=== PATIENT | male | born 1980 | race Caucasian/White ===

== ENCOUNTER 2018-05-26 21:21 | Emergency (ER) | payer OTHER ==
[~2018-05-26] VITALS: Ht 182.9 cm; Wt 106.6 kg
[2018-05-26 21:21] VITALS: BP 133/83
[~2018-05-26 21:21] MED LIST: FLC1T PO; GBPN600T PO; GEMF600T3 PO; MELO-195 PO; MORP15TA PO; OXYC-272 PO; PNT40TEC PO; TERB250T10 PO; TIZA4CAP6 PO; [UNRECOGNIZED DRUG - CODE] PO
--- OUTSIDE RECORDS SUMMARY | 2018-05-26 21:25 | XMS REPORT ---
Author Author DARIUS BHAT Organization [facility] Address [address] [place] [address] Care Team Providers Care Merchandise Flow Team Member Name Role Phone DARIUS BHAT Unavailable PROBLEMS Type Condition ICD9-CM Code OUU88-DT Code Onset Dates Condition Status SNOMED Code Problem Gender identity disorder, unspecified F64.9 Active 74068145 Problem Major depression, recurrent, chronic F33.9 Active [id number] ALLERGIES Substance Reaction Event Type Date Status carafate Unknown Non Drug Allergy January, Active bupropion Unknown Non Drug Allergy January, Active omeprazole Unknown Non Drug Allergy January, Active wellbutrin 100mg tab Unknown Non Drug Allergy January, Active prilosec Unknown Non Drug Allergy January, Active ENCOUNTERS Encounter Location Date Diagnosis [facility] [address] [facility] [id number] [address] January, Gender identity disorder, unspecified F64.9 and Major depression, recurrent, chronic F33.9 IMMUNIZATIONS No Known Immunizations SOCIAL HISTORY Never Assessed REASON FOR VISIT f/u PLAN OF CARE Activity Details Follow Up Referral for 6 possible clinician specialists. Reason: VITAL SIGNS MEDICATIONS Medication Instructions Dosage Frequency Start Date End Date Duration Status MetFORMIN HCl ER 500 MG Orally Once a day 1 tablet with evening meal 24h Active BuPROPion HCl ER (XL) 300 MG Orally Once a day 1 tablet in the morning 24h Active Nicotine Polacrilex Active Acetaminophen Extra Strength 500 MG Orally every 6 hrs 1 tablet as needed 6h Active Terbinafine HCl 250 MG Orally Once a day 1 tablet 24h Active PredniSONE 5 MG Orally Once a day 1 tablet 24h Active Cholecalciferol 1000 UNIT Orally Once a day 1 capsule 24h Active Morphine Sulfate Active Methocarbamol 750 MG Orally every 4 hrs 1 tablet 4h Active Meloxicam 15 MG Orally Once a day 1 tablet 24h Active Fish Oil 1000 MG Orally Once a day 1 capsule 24h Active Pregabalin 150 MG Orally Once a day 1 capsule 1 to 3 hours before bedtime in the evening 24h Active Vilazodone HCl Active Pantoprazole Sodium Active BuPROPion HCl ER (Smoking Det) 150 MG Orally Once a day 1 tablet in the morning 24h Active RESULTS No Results PROCEDURES Procedure Date Ordered Result Body Site Psych diagnostic evaluation, new patient January 16, 2018 INSTRUCTIONS MEDICATIONS ADMINISTERED No Known Medications MEDICAL (GENERAL) HISTORY Type Description Date Medical History impaired fasting glucose Medical History Vitamin D deficiency, unspecified Medical History Nicotine dependence, cigarettes, uncomplicated Medical History Unsp injury to unsp level of lumbar spinal cord, s Medical History Gastro-esophageal reflux disease without esophagit Medical History Mixed hyperlipidemia Medical History Major depressive disorder, recurrent, unspecified Medical History otalgia nos Medical History other dyschromia Medical History obesity, unsp Medical History redun prepuce phimosis Medical History spasm of muscle Medical History unsp acquired absence teeth Medical History B-complex defic nec Medical History bilat inguinal hernia Medical History cervicalgia Medical History alcoh dep nec/nos-unspec Medical History alcohol abuse-unspec Medical History anxiety state nos Medical History psychological stress nec Medical History orchitis/epididymit nos Medical History hypertrophy of breast Medical History depressive disorder nec Medical History depress disorder sev w/o psych Medical History esophageal reflux Medical History organ surg nec Medical History retntion/urine, unsp Medical History premature ejaculation Medical History sprain of wrist nos Medical History lumbosacral neuritis nos Medical History refusal of treatment Medical History contusion of elbow Medical History lump or mass in breast Medical History bumbago Medical History hair diseasese nec Medical History visual discomfort Medical History unspecified constipation Medical History tobacco use disorder Medical History recurr depr disorder-unsp Medical History alcohol abuse-episodic Medical History bronchitis nos Medical History hypertention nos Medical History general osteoarthrosis Medical History acute sinusitis nos Surgical History back surgery Surgical History hernia repair Hospitalization History 2x psychiatric hospitalization
--- OUTSIDE RECORDS SUMMARY | 2018-05-26 21:25 | XMS REPORT | Continuity of Care Document ---
Author Author [facility] Organization [facility] [employer] Address Unknown Phone Unavailable Allergies Active Description Code Type Severity Reaction Onset Reported/Identified Relationship to Patient Clinical Status Yes bupropion [id number] Drug Allergy Mild N/A 01/31/2014 Medications There is no data. Problems Date Dx Coded Attending Type Code Diagnosis Diagnosed By 06/28/2015 G47.30 Sleep apnea, unspecified DIA CLARKE MD 10/13/2015 PAYAM ROCA APRN Ot V15.59 10/13/2015 PAYAM ROCA APRN Ot V70.0 10/13/2015 VEKNAT AVITIA DO Ot 724.2 10/13/2015 VENKAT AVITIA DO Ot V45.4 05/11/2016 PAYAM ROCA APRN Ot V15.59 PERSONAL HISTORY OF OTHER INJURY 05/11/2016 PAYAM ROCA APRN Ot V70.0 ROUTINE MEDICAL EXAM 05/11/2016 VENKAT AVITIA DO Ot 724.2 LUMBAGO 05/11/2016 VENKAT AVITIA DO Ot V45.4 ARTHRODESIS STATUS 05/12/2016 RO ECKERT MD Ot F32.9 MAJOR DEPRESSIVE DISORDER, SINGLE EPISOD 05/12/2016 RO ECKERT MD Ot F41.9 ANXIETY DISORDER, UNSPECIFIED 05/12/2016 RO ECKERT MD Ot Z87.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 06/30/2016 PAYAM ROCA APRN Ot V15.59 PERSONAL HISTORY OF OTHER INJURY 06/30/2016 PAYAM ROCA APRN Ot V70.0 ROUTINE MEDICAL EXAM 06/30/2016 VENKAT AVITIA DO Ot 724.2 LUMBAGO 06/30/2016 VENKAT AVITIA DO Ot V45.4 ARTHRODESIS STATUS 06/30/2016 TOMEKA PRAKASH, RO Torres Ot F32.9 MAJOR DEPRESSIVE DISORDER, SINGLE EPISOD 06/30/2016 TOMEKA PRAKASH, RO Torres Ot F41.9 ANXIETY DISORDER, UNSPECIFIED 06/30/2016 TOMEKA PRAKASH, RO Torres Ot Z87.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 07/08/2016 RHONDA PRAKASH, LILIAM Dodd Ot M54.5 LOW BACK PAIN 07/08/2016 TOMEKA PRAKASH, RO Torres Ot F32.9 MAJOR DEPRESSIVE DISORDER, SINGLE EPISOD 07/08/2016 TOMEKA PRAKASH, RO Torres Ot F41.9 ANXIETY DISORDER, UNSPECIFIED 07/08/2016 TOMEKA PRAKASH, RO Torres Ot Z87.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 07/14/2016 RHONDA PRAKASH, LILIAM Dodd Ot M54.5 LOW BACK PAIN 07/16/2016 LILIAM ELLIS MD Ot M54.5 LOW BACK PAIN 12/08/2016 M54.5 LOW BACK PAIN Jonas Mckeon 12/08/2016 Z98.1 ARTHRODESIS STATUS Jonas Mckeon Procedures Code [place] [address] Polysomnography; age 6 years or older, sleep staging with 4 or more additional parameters of sleep, VINCE PRAKASH, DIA 02/10/2016 49856 NEW PATIENT DETAILED Jonas Mckeon 01/23/2017 Results There is no data. Encounters ACCT No. Visit Date/Time Discharge Status Pt. Type Provider Facility Loc./Unit Complaint [id number] 06/12/2015 16:30:00 06/12/2015 23:59:59 CLS Outpatient [id number] 01/16/2018 13:30:00 01/16/2018 23:59:59 CLS Outpatient [facility] [id number] 04/20/2018 12:20:13 04/20/2018 23:59:59 CLS Outpatient [id number] 06/30/2016 14:16:00 06/30/2016 23:59:59 CLS Outpatient LILIAM ELLIS MD [facility] LOW BACK PAIN [id number] 05/11/2016 15:07:00 05/11/2016 23:59:59 CLS Outpatient TOMEKA PRAKASH, RO Torres [facility] HX OF DEPRESSION/ANXIETY WITH TBI [id number] 05/19/2015 09:17:00 05/19/2015 23:59:59 CLS Outpatient VENKAT AVITIA DO [facility] SPONDYLOSIS [id number] 06/05/2014 09:09:00 06/05/2014 23:59:59 CLS Outpatient PAYAM ROCA APRN [facility] SPINAL CORD INJURY [id number] 01/31/2014 19:29:00 01/31/2014 22:42:00 DIS Emergency [id number] 05/26/2018 21:22:00 ACT Emergency JORGE PRAKASH, SHARAD Platt [facility] ER PAIN ALL OVER
[2018-05-26] MEDS ORDERED: THIAMINE 100 MG/ML 2 ML (VITAMIN B-1) VIAL ONE (21:30)
[2018-05-26] MEDS ORDERED: NS IV 1000 ML 1,000 ML ONE (21:30)
[2018-05-26] MEDS ORDERED: MAGNESIUM SULFATE 1 GM/2 ML VIAL ONE (21:30)
[2018-05-26] MEDS ORDERED: FOLIC ACID 1 MG/0.2 ML SYR (ED) ONE (21:30)
[2018-05-26] MEDS ORDERED: NS IV 1000 ML 1,000 ML IV SCH (21:43)
[2018-05-26] MEDS ORDERED: THIAMINE INJECTION 100 MG, FOLIC ACID INJECTION 1 MG, VITAMIN MULTI INJECTION 10 ML, MA... IV STA ×5 (21:45)
[2018-05-26 21:51] LABS: BASOPHILS % (AUTO) 0 % (0-10); EOSINOPHILS # (AUTO) 0.1 10^3/uL (0.0-0.3); EOSINOPHILS % (AUTO) 1 % (0-10); HEMATOCRIT 44 % (40-54); HEMOGLOBIN 15.8 G/DL (13.3-17.7); LYMPHOCYTES # (AUTO) 3.2 X 10^3 (1.0-4.0); LYMPHOCYTES % (AUTO) 30 % (12-44); MEAN CORPUSCULAR HEMOGLOBIN 31 PG (25-34); MEAN CORPUSCULAR HGB CONC 36 G/DL (32-36); MEAN CORPUSCULAR VOLUME 87 FL (80-99); MEAN PLATELET VOLUME 9.4 FL (7.4-10.4); MONOCYTES # (AUTO) 0.6 X 10^3 (0.0-1.0); MONOCYTES % (AUTO) 6 % (0-12); NEUTROPHILS # (AUTO) 6.7 X 10^3 (1.8-7.8); NEUTROPHILS % (AUTO) 63 % (42-75); PLATELET COUNT 364 10^3/uL (130-400); RED BLOOD COUNT 5.04 10^6/uL (4.35-5.85); RED CELL DISTRIBUTION WIDTH 12.3 % (10.0-14.5); WHITE BLOOD COUNT 10.7 10^3/uL (4.3-11.0)
--- NOTE | 2018-05-26 21:51 | ED Psychosocial ---
General Chief Complaint: General Problems/Pain Stated Complaint: PAIN ALL OVER Source: patient, EMS Exam Limitations: intoxication History of Present Illness Date Seen by Provider: May 26, 2018 Time Seen by Provider: 21:27 Initial Comments Patient presents to the ER by EMS with chief complaint that he called police greg because he was concerned that he might stop breathing if he fell asleep. He drank somewhere between 6 and 8 shots equivalent of Yeison garza trying to ameliorate the withdrawal effects of being off the morphine for the past 3 days and starting the oxycodone. He is on the morphine for the past 9 years and has tried switching off of the morphine to fentanyl patches and that did not work for him so that is the second attempt to switch to a lower dose oxycodone. He was using 30 mg 3 times a day of sustained-release morphine and is now using 15 mg oxycodone sustained-release 3 times a day. He says that he's having 10 out of 10 pain in his bilateral lower extremities. 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 He is followed by the spinal clinic and [facility] in [place], [place] and they have been working on changing his medications. He says he gets all the bad effects but not of the benefit from the other opiate choices. He knows he has hyper analgesia secondary to his long use of morphine. Tonight he was not trying to kill himself he says he does have from time to time suicidal ideation but he did not have that tonight he just merely wanted to help with the withdrawal effects from the morphine so that he could be successful on the oxycodone. After he drank the alcohol he says he was still in excruciating pain and yet felt intoxicated and then he was afraid that the combination of alcohol and opiates would cause him to stop breathing if he went to sleep. He does wear CPAP mask but he says does not fit him very well so he will did not trust that it would help him breathe when he slept. Before tonight he says been several years since he drank but he used to drink quite a bit of whiskey until 1 day he decided he was going to quit. Allergies and Home Medications Allergies Coded Allergies: bupropion (Verified Allergy, Mild, 01/31/14) "Jittery" Home Medications Dextroamphetamine Sulfate 5 Mg/5 Ml Solution, 5 MG PO BID, (Reported) Folic Acid 1 Mg Tablet, 1 MG PO DAILY, (Reported) Gabapentin 600 Mg Tab, 1,200 MG PO TID, (Reported) Gemfibrozil 600 Mg Tablet, 1 EACH PO BID, (Reported) Meloxicam 15 Mg Tablet, 15 MG PO DAILY, (Reported) Morphine Sulfate 15 Mg Tablet, 30 MG PO TID, (Reported) Oxycodone Hcl/Acetaminophen 1 Tab Tablet, 1 TAB PO Q4H PRN for PAIN Prescribed by: ROCK FIELDS on 01/31/142233 Pantoprazole Sodium 40 Mg Tablet.dr, 1 TAB PO DAILY, (Reported) Terbinafine Hcl 250 Mg Tablet, 250 MG PO DAILY, (Reported) Tizanidine Hcl 4 Mg Capsule, 4 MG PO HS, (Reported) Patient Home Medication List Home Medication List Reviewed: Yes Review of Systems Constitutional: No chills, No diaphoresis, No fever, No malaise EENTM: No ear pain, No eye pain Respiratory: No cough, No phlegm, No short of breath Cardiovascular: No chest pain, No palpitations Gastrointestinal: No abdominal pain, No nausea, No vomiting Genitourinary: No discharge, No dysuria Musculoskeletal: No joint pain, No joint swelling Skin: No dryness, No pruritus, No rash Past Njpgmbh-Ylvxmr-Vnbzng Hx Patient Social History Alcohol Use: Past History Alcohol Beverage of Choice: Whiskey Recreational Drug Use: No Smoking Status: Current Everyday Smoker Type Used: Cigarettes Past Medical History Gastroesophageal Reflux Degenerate Disk Disease, Back Injury, Chronic Back Pain ADD/ADHD, PTSD Physical Exam Capillary Refill : Height, Weight, BMI Height: 6'0" Weight: 260lbs. oz. 117.352767jc; BMI Method:Stated General Appearance: WD/WN, mild distress (Tearful) HEENT: PERRL/EOMI, pharynx normal Neck: non-tender, full range of motion, normal inspection Respiratory: no respiratory distress, no accessory muscle use Cardiovascular: normal peripheral pulses, regular rate, rhythm, no edema Gastrointestinal: soft, tenderness (Diffuse all 4 quadrants) Extremities: normal range of motion, normal capillary refill, other (Tender to palpation everywhere.) Neurologic/Psychiatric: alert, oriented x 3, other (Depressed affect, tearful) Appearance/Memory: appropriate appearance, no memory impairment; No denies illness Behavior/Eye Contact: cooperative, good eye contact Thoughts/Hallucinations: normal thought pattern, no apparent hallucination, other (Deny suicidal or homicidal ideation) Skin: normal color, warm/dry Progress/Results/Core Measures Results/Orders Lab Results Laboratory Tests Test 05/26/18 21:30 Range/Units White Blood Count 10.7 4.3-11.0 10^3/uL Red Blood Count 5.04 4.35-5.85 10^6/uL Hemoglobin 15.8 13.3-17.7 G/DL Hematocrit 44 40-54 % Mean Corpuscular Volume 87 80-99 FL Mean Corpuscular Hemoglobin 31 25-34 PG Mean Corpuscular Hemoglobin Concent 36 32-36 G/DL Red Cell Distribution Width 12.3 10.0-14.5 % Platelet Count 364 130-400 10^3/uL Mean Platelet Volume 9.4 7.4-10.4 FL Neutrophils (%) (Auto) 63 42-75 % Lymphocytes (%) (Auto) 30 12-44 % Monocytes (%) (Auto) 6 0-12 % Eosinophils (%) (Auto) 1 0-10 % Basophils (%) (Auto) 0 0-10 % Neutrophils # (Auto) 6.7 1.8-7.8 X 10^3 Lymphocytes # (Auto) 3.2 1.0-4.0 X 10^3 Monocytes # (Auto) 0.6 0.0-1.0 X 10^3 Eosinophils # (Auto) 0.1 0.0-0.3 10^3/uL Basophils # (Auto) 0.0 0.0-0.1 10^3/uL Sodium Level 143 135-145 MMOL/L Potassium Level 3.6 3.6-5.0 MMOL/L Chloride Level 110 H 98-107 MMOL/L Carbon Dioxide Level 20 L 21-32 MMOL/L Anion Gap 13 5-14 MMOL/L Blood Urea Nitrogen 13 7-18 MG/DL Creatinine 0.82 0.60-1.30 MG/DL Estimat Glomerular Filtration Rate > 60 BUN/Creatinine Ratio 16 Glucose Level 111 H 70-105 MG/DL Calcium Level 9.3 8.5-10.1 MG/DL Corrected Calcium 8.5-10.1 MG/DL Total Bilirubin 0.5 0.1-1.0 MG/DL Aspartate Amino Transf (AST/SGOT) 13 5-34 U/L Alanine Aminotransferase (ALT/SGPT) 17 0-55 U/L Alkaline Phosphatase 73 40-136 U/L Total Protein 7.6 6.4-8.2 GM/DL Albumin 4.8 H 3.2-4.5 GM/DL Lipase 58 8-78 U/L Salicylates Level < 5.0 L 5.0-20.0 MG/DL Acetaminophen Level < 10 L 10-30 UG/ML Serum Alcohol 170 H <10 MG/DL My Orders Orders - SHARAD PATEL Giulia Ns Iv 1000 Ml (Sodium Chloride 0.9%) (05/26/18 21:30) Magnesium Sulfate Inj (Magnesium Sulfate (05/26/18 21:30) Folic Acid Syr (Ed) (Folic Acid Syr (Ed) (05/26/18 21:30) Thiamine Injection (Vitamin B-1 Injectio (05/26/18 21:30) Ua Culture If Indicated (05/26/18 21:43) Cbc With Automated Diff (05/26/18 21:43) Comprehensive Metabolic Panel (05/26/18 21:43) Alcohol (05/26/18 21:43) Drug Screen Stat (Urine) (05/26/18 21:43) Acetaminophen (05/26/18 21:43) Salicylate (05/26/18 21:43) Ekg Tracing (05/26/18 21:43) Saline Lock/Iv-Start (05/26/18 21:43) Monitor-Rhythm Ecg Trace Only (05/26/18 21:43) Bh Status Checks/Observation Q15M (05/26/18 21:43) Saline Lock/Iv-Start (05/26/18 21:43) Ns Iv 1000 Ml (Sodium Chloride 0.9%) (05/26/18 21:43) Lipase (05/26/18 21:43) End Tidal Co2 (05/26/18 21:43) Thiamine Injection (Vitamin B-1 Injectio (05/26/18 21:45) Nicotine Patch (Nicoderm Patch) (05/26/18 22:15) Ketorolac Injection (Toradol Injection) (05/26/18 22:45) Acetaminophen Tablet (Tylenol Tablet) (05/26/18 23:00) Medications Given in ED Current Medications Medications Dose Ordered Sig/Madelin Route Start Time Stop Time Status Last Admin Dose Admin Folic Acid 1 mg STK-MED ONCE .ROUTE 05/26/18 21:30 05/26/18 21:35 DC 05/26/18 21:36 1 MG Magnesium Sulfate 1 gm STK-MED ONCE .ROUTE 05/26/18 21:30 05/26/18 21:35 DC 05/26/18 21:36 2 GM Sodium Chloride 1,000 ml @ ud STK-MED ONCE .ROUTE 05/26/18 21:30 05/26/18 21:34 DC 05/26/18 21:36 1,000 MLS/HR Thiamine HCl 200 mg STK-MED ONCE .ROUTE 05/26/18 21:30 05/26/18 21:35 DC 05/26/18 21:36 200 MG Progress Progress Note #1: Time: 21:51 Progress Note We'll get some labs to find out what his alcohol level is urinalysis and urine drug screen. We'll give him a banana bag and a liter fluids to help take him up and dilute his substances and help him remove them through urine. Would like to help with his withdrawal side effects with some kind of benzodiazepine but I would prefer to see what his alcohol level is first and we will put an end tidal CO2 monitor on him as well. EKG. Progress Note #2: Time: 22:44 Progress Note The plan is to get some labs back before offered him anything for his discomfort. Like no his alcohol level is in his urine drug screen. While patient was in the bathroom riding a urine specimen the nurse thinks he was smoking a cigarette. He asked if you are outside for a smoke and she informed him of our policy that if he left he would be signed out. We did offer him a nicotine patch and 1 was ordered. They should says he did not really want a nicotine patch but he would take it. Patient was informed that if he left he would be signed out as AMA as he was still asking to go out and smoke a cigarette. Patient then walked out the back door of the ambulance bay. Alcohol level is 170. Benzos might further produce sedation. We plan to give him some Toradol for analgesia as this should not produce any sedation. We can also use Tylenol and then reassess. The patient removed his own IV access and left a laying on the bed. He declined to return when asked. At this time he is decisional, alert oriented times person place and situation and we have given him options and he has exercise the option to discontinue seeking treatment in the ER tonight. We have encouraged him to follow up with his primary care doctor. He has repeatedly stated that he is not suicidal and was not trying to kill himself but was just trying to take care of his symptoms. Initial ECG Impression Date: May 26, 2018 Initial ECG Impression Time: 22:08 Initial ECG Rate: 88 Initial ECG Rhythm: Normal Sinus Initial ECG Intervals: Normal Initial ECG Impression: Normal Initial ECG Comparisson: No Previous ECG Available Comment No ST elevation or depression Departure Impression Primary Impression: Alcohol intoxication Qualified Codes: F10.920 - Alcohol use, unspecified with intoxication, uncomplicated Additional Impressions: Opiate dependence, continuous Opioid-induced hyperalgesia Disposition: 07 AGAINST MEDICAL ADVICE Condition: Against Medical Advice Departure-Patient Inst. Decision time for Depature: 23:01 Referrals: NO,LOCAL PHYSICIAN (PCP) Primary Care Physician Patient Instructions: ALCOHOL AND SUBSTANCE ABUSE, Alcohol Level Add. Discharge Instructions: Follow-up with your primary care doctor. If you have other worrisome symptoms return to the ER for further evaluation. All discharge instructions reviewed with patient and/or family. Voiced understanding. SHARAD PATEL May 26, 2018 21:51
[2018-05-26 22:05] LABS: ALANINE AMINOTRANSFERASE 17 U/L (0-55); ALBUMIN 4.8 GM/DL (3.2-4.5); ALKALINE PHOSPHATASE 73 U/L (40-136); BILIRUBIN,TOTAL 0.5 MG/DL (0.1-1.0); BUN/CREATININE RATIO 16; CALCIUM 9.3 MG/DL (8.5-10.1); CARBON DIOXIDE 20 MMOL/L (21-32); CREATININE SERUM 0.82 MG/DL (0.60-1.30); GFR ESTIMATED > 60; GLUCOSE 111 MG/DL (70-105); LIPASE 58 U/L (8-78); SALICYLATE < 5.0 MG/DL (5.0-20.0); TOTAL PROTEIN 7.6 GM/DL (6.4-8.2)
[2018-05-26] MEDS ORDERED: NICOTINE 14 MG (NICODERM) PATCH TD ONE (22:15)
[2018-05-26 22:18] LABS: ACETAMINOPHEN < 10 UG/ML (10-30); CHLORIDE 110 MMOL/L (98-107); POTASSIUM 3.6 MMOL/L (3.6-5.0); SODIUM 143 MMOL/L (135-145)
[2018-05-26] MEDS ORDERED: KETOROLAC 30 MG/ML VIAL IVP ONE (22:45)
[2018-05-26] MEDS ORDERED: ACETAMINOPHEN 500 MG TAB (TYLENOL) PO ONE (23:00)
[2018-05-27 02:18] LABS: BILIRUBIN,URINE NEGATIVE (NEGATIVE); CLARITY,URINE CLEAR; COLOR,URINE YELLOW; GLUCOSE, URINE (UA) NEGATIVE (NEGATIVE); KETONES,URINE NEGATIVE (NEGATIVE); LEUKOCYTE ESTERASE ,URINE NEGATIVE (NEGATIVE); NITRITE,URINE NEGATIVE (NEGATIVE); PH,URINE 5 (5-9); PROTEIN,URINE NEGATIVE (NEGATIVE); UROBILINOGEN,URINE NORMAL (NORMAL)
[2018-05-27 02:28] LABS: BACTERIA,URINE FEW /HPF; RBC,URINE RARE /HPF; SQUAMOUS EPITHELIAL CELL,UR 0-2 /HPF
[2018-05-27 02:29] LABS: HYALINE CASTS, URINE 0-2 /LPF
== END 2018-05-26 22:40 | disposition left against medical advice (07) ==
LOC: EDUNIT# 21:21 → ER 21:22
DX: F10.129 Alcohol abuse with intoxication, unspecified (principal); F11.288 Opioid dependence with other opioid-induced disorder; R20.8 Other disturbances of skin sensation; K21.9 Gastro-esophageal reflux disease without esophagitis; F90.9 Attention-deficit hyperactivity disorder, unspecified type; F43.10 Post-traumatic stress disorder, unspecified; F17.210 Nicotine dependence, cigarettes, uncomplicated; Z88.8 Allergy status to other drugs, medicaments and biological substances; Z98.890 Other specified postprocedural states
CPT/HCPCS: 36415; 80053; 80320; 80329; 81000; 83690; 85025; 93005; 93041; 96374; 96375

== ENCOUNTER 2018-05-27 01:37 | Emergency (ER) | payer OTHER ==
[~2018-05-27] VITALS: Ht 182.9 cm; Wt 129.3 kg
--- OUTSIDE RECORDS SUMMARY | 2018-05-27 01:41 | XMS REPORT | Continuity of Care Document ---
Author Author [facility] Organization [facility] [place] Address Unknown Phone Unavailable Allergies Active Description Code Type Severity Reaction Onset Reported/Identified Relationship to Patient Clinical Status Yes bupropion [id number] Drug Allergy Mild N/A 01/31/2014 Medications There is no data. Problems Date Dx Coded Attending Type Code Diagnosis Diagnosed By 06/28/2015 G47.30 Sleep apnea, unspecified DIA CLARKE MD 10/13/2015 PAYAM ROCA APRN Ot V15.59 10/13/2015 PAYAM ROCA APRN Ot V70.0 10/13/2015 VENKAT AVITIA DO Ot 724.2 10/13/2015 VENKAT AVITIA [...] Ot 724.2 LUMBAGO 06/30/2016 VENKAT AVITIA DO J Ot V45.4 ARTHRODESIS STATUS 06/30/2016 TOMEKA PRAKASH, [...] Dodd Ot M54.5 LOW BACK PAIN 07/16/2016 RHONDA PRAKASH, LILIAM Dodd Ot M54.5 LOW BACK PAIN 12/08/2016 M54.5 LOW BACK PAIN Jonas Mckeon 12/08/2016 Z98.1 ARTHRODESIS STATUS Jonas Mckeon 05/26/2018 RHONDA PRAKASH, LILIAM Dodd Ot M54.5 LOW BACK PAIN Procedures Code Description [place] [address] Polysomnography; age 6 years or older, sleep staging with 4 or more additional parameters of sleep, VINCE PRAKASH, DIA 02/10/2016 23628 NEW PATIENT DETAILED Jonas Mckeon 01/23/2017 Results Test Result Range Complete blood count (CBC) with automated white blood cell (WBC) differential - 05/26/18 21:30 Blood leukocytes automated count (number/volume) 10.7 10*3/uL 4.3-11.0 Blood erythrocytes automated count (number/volume) 5.04 10*6/uL 4.35-5.85 Venous blood hemoglobin measurement (mass/volume) 15.8 g/dL 13.3-17.7 Blood hematocrit (volume fraction) 44 % 40-54 Automated erythrocyte mean corpuscular volume 87 [foz_us] 80-99 Automated erythrocyte mean corpuscular hemoglobin (mass per erythrocyte) 31 pg 25-34 Automated erythrocyte mean corpuscular hemoglobin concentration measurement ( mass/volume) 36 g/dL 32-36 Automated erythrocyte distribution width ratio 12.3 % 10.0-14.5 Automated blood platelet count (count/volume) 364 10*3/uL 130-400 Automated blood platelet mean volume measurement 9.4 [foz_us] 7.4-10.4 Automated blood neutrophils/100 leukocytes 63 % 42-75 Automated blood lymphocytes/100 leukocytes 30 % 12-44 Blood monocytes/100 leukocytes 6 % 0-12 Automated blood eosinophils/100 leukocytes 1 % 0-10 Automated blood basophils/100 leukocytes 0 % 0-10 Blood neutrophils automated count (number/volume) 6.7 10*3 1.8-7.8 Blood lymphocytes automated count (number/volume) 3.2 10*3 1.0-4.0 Blood monocytes automated count (number/volume) 0.6 10*3 0.0-1.0 Automated eosinophil count 0.1 10*3/uL 0.0-0.3 Automated blood basophil count (count/volume) 0.0 10*3/uL 0.0-0.1 Comprehensive metabolic panel - 05/26/18 21:30 Serum or plasma sodium measurement (moles/volume) 143 mmol/L 135-145 Serum or plasma potassium measurement (moles/volume) 3.6 mmol/L 3.6-5.0 Serum or plasma chloride measurement (moles/volume) 110 mmol/L 98-107 Carbon dioxide 20 mmol/L 21-32 Serum or plasma anion gap determination (moles/volume) 13 mmol/L 5-14 Serum or plasma urea nitrogen measurement (mass/volume) 13 mg/dL 7-18 Serum or plasma creatinine measurement (mass/volume) 0.82 mg/dL 0.60-1.30 Serum or plasma urea nitrogen/creatinine mass ratio 16 NRG Serum or plasma creatinine measurement with calculation of estimated glomerular filtration rate > NRG Serum or plasma glucose measurement (mass/volume) 111 mg/dL 70-105 Serum or plasma calcium measurement (mass/volume) 9.3 mg/dL 8.5-10.1 Serum or plasma total bilirubin measurement (mass/volume) 0.5 mg/dL 0.1-1.0 Serum or plasma alkaline phosphatase measurement (enzymatic activity/volume) 73 U/L 40-136 Serum or plasma aspartate aminotransferase measurement (enzymatic activity/ volume) 13 U/L 5-34 Serum or plasma alanine aminotransferase measurement (enzymatic activity/volume ) 17 U/L 0-55 Serum or plasma protein measurement (mass/volume) 7.6 g/dL 6.4-8.2 Serum or plasma albumin measurement (mass/volume) 4.8 g/dL 3.2-4.5 Lipase - 05/26/18 21:30 Lipase 58 U/L 8-78 Serum or plasma salicylates measurement (mass/volume) - 05/26/18 21:30 Serum or plasma salicylates measurement (mass/volume) < mg/dL 5.0-20.0 Serum or plasma acetaminophen measurement (mass/volume) - 05/26/18 21:30 Serum or plasma acetaminophen measurement (mass/volume) < ug/mL 10-30 Serum or plasma ethanol measurement (mass/volume) - 05/26/18 21:30 Serum or plasma ethanol measurement (mass/volume) 170 mg/dL <10 Encounters ACCT No. Visit Date/Time Discharge Status Pt. Type Provider Facility Loc./Unit Complaint [id number] 06/12/2015 16:30:00 06/12/2015 23:59:59 CLS Outpatient [id number] 01/16/2018 13:30:00 01/16/2018 23:59:59 CLS Outpatient IAN GARSIA [facility] [id number] 04/20/2018 12:20:13 04/20/2018 23:59:59 CLS Outpatient [id number] 05/26/2018 21:22:00 05/26/2018 22:40:00 DIS Emergency JORGE PRAKASH, SHARAD Platt [facility] ER PAIN ALL OVER [id number] 06/30/2016 14:16:00 06/30/2016 23:59:59 CLS Outpatient LILIAM ELLIS MD [facility] RAD LOW BACK PAIN [id number] 05/11/2016 15:07:00 05/11/2016 23:59:59 CLS Outpatient RO ECKERT MD [facility] RAD HX OF DEPRESSION/ANXIETY WITH TBI [id number] 05/19/2015 09:17:00 05/19/2015 23:59:59 CLS Outpatient VENKAT AVITIA DO [facility] RAD SPONDYLOSIS [id number] 06/05/2014 09:09:00 06/05/2014 23:59:59 CLS Outpatient PAYAM ROCA APRN [facility] RAD SPINAL CORD INJURY [id number] 01/31/2014 19:29:00 01/31/2014 22:42:00 DIS Emergency
[2018-05-27] MEDS ORDERED: NALOXONE 0.4 MG/ML 1 ML (NARCAN) VIAL ONE (01:45)
--- NOTE | 2018-05-27 01:50 | ED Psychosocial ---
General Chief Complaint: Substance Abuse Stated Complaint: ETOH Nursing Triage Note: LEFT AMA, WENT HOME AND TOOK MORE MEDICATIONS FOR HIS PAIN HE IS HAVING. CALLED HIS BROTHER AND BROTHER AND PT CALLED EMS TO COME GET HIM AGIAN. Source: patient Exam Limitations: intoxication History of Present Illness Date Seen by Provider: May 27, 2018 Time Seen by Provider: 01:40 Initial Comments Patient presents to ER by EMS. He says he called his brother both called because after he left the hospital earlier before midnight AMA he went home took 3 more 30 mg tablets of morphine sustained release and one more tablet of oxycodone. He says he did not drink anymore alcohol because he I'll call was not helping any ice. He says he just wants to sleep. Doesn't care if he wakes up. He denies suicidal intention. He says it called because his brother is concerned that he might not wake up if he went to sleep after taking that much morphine. Says he is tired of the pain and just wants to sleep. Allergies and Home Medications Allergies Coded Allergies: bupropion (Verified Allergy, Mild, 01/31/14) "Jittery" Home Medications Dextroamphetamine Sulfate 5 Mg/5 Ml Solution, 5 MG PO BID, (Reported) Folic Acid 1 Mg Tablet, 1 MG PO DAILY, (Reported) Gabapentin 600 Mg Tab, 1,200 MG PO TID, (Reported) Gemfibrozil 600 Mg Tablet, 1 EACH PO BID, (Reported) Meloxicam 15 Mg Tablet, 15 MG PO DAILY, (Reported) Morphine Sulfate 15 Mg Tablet, 30 MG PO TID, (Reported) Oxycodone Hcl/Acetaminophen 1 Tab Tablet, 1 TAB PO Q4H PRN for PAIN Prescribed by: ROCK FIELDS on 01/31/142233 Pantoprazole Sodium 40 Mg Tablet.dr, 1 TAB PO DAILY, (Reported) Terbinafine Hcl 250 Mg Tablet, 250 MG PO DAILY, (Reported) Tizanidine Hcl 4 Mg Capsule, 4 MG PO HS, (Reported) Patient Home Medication List Home Medication List Reviewed: Yes Review of Systems Constitutional: No chills, No diaphoresis, No fever, No malaise EENTM: No ear pain, No eye pain Respiratory: No cough, No short of breath Cardiovascular: No chest pain, No edema Gastrointestinal: No abdominal pain, No constipation, No nausea Past Epguukh-Wggdiz-Qjptpa Hx Patient Social History Alcohol Use: Regular Use Alcohol Beverage of Choice: Whiskey Recreational Drug Use: No Smoking Status: Current Everyday Smoker Type Used: Cigarettes Recent Foreign Travel: No Contact w/Someone Who Travel: No Recent Infectious Disease Expo: No Past Medical History Surgeries: Yes (lumbar spine fusion, hernia repair) Respiratory: No Cardiac: No Neurological: No Gastrointestinal: Yes Gastroesophageal Reflux Musculoskeletal: Yes Degenerate Disk Disease, Back Injury, Chronic Back Pain Endocrine: No Cancer: No Psychosocial: Yes ADD/ADHD, PTSD Integumentary: No Blood Disorders: No Physical Exam Vital Signs - First Documented 05/27/18 01:44 Temp 98.6 Pulse 95 Resp 10 B/P (MAP) 163/94 (117) Pulse Ox 94 Capillary Refill : Less Than 3 Seconds Height, Weight, BMI Height: 6'0" Weight: 285lbs. oz. 129.943479ox; BMI Method:Stated General Appearance: WD/WN, no apparent distress HEENT: PERRL/EOMI, pharynx normal Neck: non-tender, normal inspection Respiratory: chest non-tender, lungs clear, normal breath sounds, no respiratory distress, no accessory muscle use Cardiovascular: normal peripheral pulses, regular rate, rhythm Peripheral Pulses: 2+ Radial Pulses (R), 2+ Radial Pulses (L) Gastrointestinal: normal bowel sounds, non tender, soft Neurologic/Psychiatric: alert, oriented x 3, depressed affect Progress/Results/Core Measures Results/Orders My Orders Orders - SHARAD PATEL End Tidal Co2 (05/27/18 01:47) Naloxone Injection (Narcan Injection) (05/27/18 01:45) Naloxone Injection (Narcan Injection) (05/27/18 02:15) Alcohol (05/27/18 02:04) Drug Screen Stat (Urine) (05/27/18 02:07) Medications Given in ED Current Medications Medications Dose Ordered Sig/Madelin Route Start Time Stop Time Status Last Admin Dose Admin Naloxone HCl 0.4 mg STK-MED ONCE .ROUTE 05/27/18 01:45 05/27/18 01:49 DC 05/27/18 01:58 0.4 MG Vital Signs/I&O 05/27/18 01:44 Temp 98.6 Pulse 95 Resp 10 B/P (MAP) 163/94 (117) Pulse Ox 94 Blood Pressure Mean: 117 Progress Progress Note : Time: 02:16 Progress Note We have obtained another urine sample to do a urine drug screen as well as a repeat alcohol level to confirm that he did not drink more alcohol. He's required 0.4 mg of Narcan. He'll need to be put on Narcan drip as 0 long-acting pain meds. We are on ICU diversion so we will look for help in [place], [place]. I asked the patient about this and he said that's fine Departure Impression Primary Impression: Morphine overdose Qualified Codes: T40.2X4A - Poisoning by other opioids, undetermined, initial encounter Additional Impressions: Opioid-induced hyperalgesia Alcohol intoxication Qualified Codes: F10.920 - Alcohol use, unspecified with intoxication, uncomplicated Disposition: XFER SHT-TRM HOSP Condition: Stable Transfer Time Spoke to Accepting Phy: 02:10 Transfer Progress Notes Talk to Marti May fudge candy maker at [facility] and she accepts the patient for transfer 4 Narcan and management of his intentional opiate overdose. We discussed the patient is still denying any suicidal ideation or intention. He does not want to harm himself. He wants to sleep. Transfer Facility: [place], [place] Method of Transfer: EMS Departure-Patient Inst. Referrals: NO,LOCAL PHYSICIAN (PCP/Family) Primary Care Physician Patient Instructions: ALCOHOL AND SUBSTANCE ABUSE SHARAD PATEL May 27, 2018 01:50
[2018-05-27] MEDS ORDERED: NALOXONE 0.4 MG/ML 1 ML (NARCAN) VIAL IV ONE (02:15)
[2018-05-27 02:31] LABS: AMPHETAMINE SCREEN, URINE NEGATIVE (NEGATIVE); BARBITURATE SCREEN URINE NEGATIVE (NEGATIVE); BENZODIAZEPINES SCREEN URINE NEGATIVE (NEGATIVE); CANNABINOID SCREEN, URINE NEGATIVE (NEGATIVE); COCAINE SCREEN URINE NEGATIVE (NEGATIVE); METHADONE STAT NEGATIVE (NEGATIVE); METHAMPHETAMINE SCREEN URINE S NEGATIVE (NEGATIVE); OPIATE SCREEN URINE POSITIVE (NEGATIVE); OXYCODONE STAT POSITIVE (NEGATIVE); PROPOXYPHENE STAT NEGATIVE (NEGATIVE); TRICYCLIC ANTIDEPRESSANTS SCRE NEGATIVE (NEGATIVE)
[2018-05-27 03:04] VITALS: BP 163/93
== END 2018-05-27 03:04 | disposition short-term general hospital (02) ==
LOC: ER 01:37 → EDUNIT# 01:37 → ER 03:04
DX: T40.2X4A Poisoning by other opioids, undetermined, initial encounter (principal); R20.8 Other disturbances of skin sensation; F10.129 Alcohol abuse with intoxication, unspecified; K21.9 Gastro-esophageal reflux disease without esophagitis; F90.9 Attention-deficit hyperactivity disorder, unspecified type; F43.10 Post-traumatic stress disorder, unspecified; F17.210 Nicotine dependence, cigarettes, uncomplicated; Z98.890 Other specified postprocedural states; Z98.1 Arthrodesis status; Z88.8 Allergy status to other drugs, medicaments and biological substances
CPT/HCPCS: 36415; 80306; 80320; 96374